=== PATIENT | male | born 1965 | race African-American/Black ===

== ENCOUNTER 2021-09-18 12:30 | Emergency (ER) | payer OTHER ==
[~2021-09-18] VITALS: Ht 177.8 cm; Wt 81.8 kg
[2021-09-18 15:22] VITALS: BP 138/71
== END 2021-09-18 15:59 | disposition left against medical advice (07) ==
LOC: EMS 12:37
DX: T81.89XA Other complications of procedures, not elsewhere classified, initial encounter (principal); L02.414 Cutaneous abscess of left upper limb; F17.210 Nicotine dependence, cigarettes, uncomplicated
CPT/HCPCS: 99283; Z7502

== ENCOUNTER 2022-09-04 05:46 | Emergency (ER) | payer OTHER ==
[~2022-09-04] VITALS: Ht 177.8 cm; Wt 83.0 kg
[2022-09-04 05:58] VITALS: BP 116/68
[2022-09-04] MEDS ORDERED: DIPH25CA85 PO (07:23)
== END 2022-09-04 07:37 | disposition home or self-care (01) ==
LOC: EMS 05:46
DX: L29.9 Pruritus, unspecified (principal); F17.210 Nicotine dependence, cigarettes, uncomplicated; W57.XXXA Bitten or stung by nonvenomous insect and other nonvenomous arthropods, initial encounter; Y93.89 Activity, other specified; Y92.89 Other specified places as the place of occurrence of the external cause; Y99.8 Other external cause status
CPT/HCPCS: 99282; Z7502

== ENCOUNTER 2022-10-24 15:01 | Emergency (ER) | payer OTHER ==
[~2022-10-24] VITALS: Ht 177.8 cm; Wt 75.0 kg
[~2022-10-24 15:01] MED LIST: DIPH25CA85 PO
[2022-10-24 15:03] VITALS: BP 135/91
[2022-10-24] MEDS ORDERED: PERM60CR19 TP (16:22)
[2022-10-24] MEDS ORDERED: DIPH50 PO (16:22)
== END 2022-10-24 16:37 | disposition home or self-care (01) ==
LOC: EMS 15:05
DX: B86 Scabies (principal); F17.210 Nicotine dependence, cigarettes, uncomplicated
CPT/HCPCS: 99282; Z7502